=== PATIENT | female | born 1980 | race Caucasian/White ===

== ENCOUNTER 2020-02-10 06:00 | Day surgery (SDC) | payer OTHER ==
[~2020-02-10 06:00] MED LIST: ACEBUTOLOL HCL200 MG PO; INDERAL LA80 MG; ORPH100T PO; PREORBOTIC CAP1 EACH PO; VITAMIN D
== END 2020-02-10 13:15 | disposition home or self-care (01) ==
LOC: CIR.AMB 06:00
PROVIDERS: ATTEND Obstetrics & Gynecology Maternal & Fetal Medicine
DX: N84.0 Polyp of corpus uteri (principal)

== ENCOUNTER 2021-08-19 17:37 | Emergency (ER) | payer OTHER ==
[~2021-08-19] VITALS: Ht 165.1 cm; Wt 57.2 kg
== END 2021-08-19 18:52 | disposition home or self-care (01) ==
LOC: ER 17:37
DX: T19.2XXA Foreign body in vulva and vagina, initial encounter (principal); X58.XXXA Exposure to other specified factors, initial encounter; Y92.89 Other specified places as the place of occurrence of the external cause